=== PATIENT | male | born 1950 | race Caucasian/White ===

== ENCOUNTER 2017-12-27 13:25 | Emergency (ER) | payer MEDICARE, BC ==
[~2017-12-27] VITALS: Ht 172.7 cm; Wt 95.2 kg
[2017-12-27 13:54] LABS: BASOPHILS ABSOLUTE AUTO 0.07 K/mm3 (0.00-0.23); BASOPHILS PERCENT AUTO 1 % (0-2); EOSINOPHILS ABSOLUTE AUTO 0.43 K/mm3 (0.00-0.68); EOSINOPHILS PERCENT AUTO 7 % (0-6); Hematocrit 44.7 % (37.0-53.0); Hemoglobin 14.9 g/dL (13.5-17.5); IMMATURE GRAN ABSOLUTE AUTO 0.05 K/mm3 (0.00-0.10); IMMATURE GRAN PERCENT AUTO 1 % (0-1); LYMPHOCYTES ABSOLUTE AUTO 2.62 K/mm3 (0.84-5.20); LYMPHOCYTES PERCENT AUTO 41 % (21-46); MONOCYTES ABSOLUTE AUTO 0.87 K/mm3 (0.16-1.47); MONOCYTES PERCENT AUTO 14 % (4-13); Mean Corpuscular HGB 30.9 pg (26.0-34.0); Mean Corpuscular HGB Conc 33.3 g/dL (31.5-36.5); Mean Corpuscular Volume 93 fL (80-100); Mean Platelet Volume 10.9 fL (9.1-12.4); NEUTROPHILS ABSOLUTE AUTO 2.36 K/mm3 (1.96-9.15); NEUTROPHILS PERCENT AUTO 37 % (41-73); Platelet Count 180 K/mm3 (150-400); RDW Standard Deviation 47.2 fL (35.1-46.3); Red Blood Cell Count 4.82 M/mm3 (4.30-5.90)
[2017-12-27] MEDS ORDERED: [UNRECOGNIZED DRUG - OTHER] (14:05)
[2017-12-27] MEDS ORDERED: LORAZEPAM (14:05)
[2017-12-27] MEDS ORDERED: LISINOPRIL (14:05)
[2017-12-27] MEDS ORDERED: GABAPENTIN (14:05)
[2017-12-27 14:09] LABS: Albumin, Blood 4.1 g/dL (3.4-5.0); Bilirubin, Total 0.4 mg/dL (0.1-1.0); Bun/Creatinine Ratio 22.4 (12.0-20.0); Calcium, Blood 9.7 mg/dL (8.5-10.1); Creatinine, Blood 1.34 mg/dL (0.60-1.20); Globulin, Blood 4.1 g/dL (2.2-4.0); Potassium, Blood 4.2 mmol/L (3.5-5.5); Total Protein, Blood 8.2 g/dL (6.4-8.2)
[2017-12-27] MEDS ORDERED: HYDR25SUP PR (14:09)
== END 2017-12-27 14:15 | disposition home or self-care (01) ==
LOC: ER 13:25
PROVIDERS: Emergency Medicine
DX: K64.4 Residual hemorrhoidal skin tags (principal); K64.8 Other hemorrhoids
CPT/HCPCS: 36415; 46600; 80053; 85025; 86850; 86900; 86901; 99284

== ENCOUNTER → 2019-05-02 | Outpatient (CLI) | payer MEDICARE, BC ==
[~2019-05-02] MED LIST: GABAPENTIN; HYDR25SUP PR; LISINOPRIL; LORAZEPAM; [UNRECOGNIZED DRUG - OTHER]
[2019-05-02 12:07] LABS: BASOPHILS ABSOLUTE AUTO 0.04 K/mm3 (0.00-0.23); BASOPHILS PERCENT AUTO 1 % (0-2); EOSINOPHILS ABSOLUTE AUTO 0.47 K/mm3 (0.00-0.68); EOSINOPHILS PERCENT AUTO 10 % (0-6); Hematocrit 40.9 % (37.0-53.0); Hemoglobin 13.9 g/dL (13.5-17.5); IMMATURE GRAN ABSOLUTE AUTO 0.02 K/mm3 (0.00-0.10); IMMATURE GRAN PERCENT AUTO 0 % (0-1); LYMPHOCYTES ABSOLUTE AUTO 2.02 K/mm3 (0.84-5.20); LYMPHOCYTES PERCENT AUTO 43 % (21-46); MONOCYTES ABSOLUTE AUTO 0.54 K/mm3 (0.16-1.47); MONOCYTES PERCENT AUTO 12 % (4-13); Mean Corpuscular HGB 31.4 pg (26.0-34.0); Mean Corpuscular Volume 93 fL (80-100); Mean Platelet Volume 11.2 fL (9.1-12.4); NEUTROPHILS PERCENT AUTO 34 % (41-73); Platelet Count 151 K/mm3 (150-400); RDW Coefficient Variation 14.1 % (11.7-14.2); RDW Standard Deviation 47.8 fL (35.1-46.3); Red Blood Cell Count 4.42 M/mm3 (4.30-5.90); White Blood Cell Count 4.69 K/mm3 (4.00-11.30)
[2019-05-02 12:21] LABS: Alanine Aminotransfer (ALT/SGP 41 U/L (12-78); Albumin/Globulin Ratio 1.1 (0.8-1.8); Alk Phos 68 U/L (40-126); Anion Gap 7 mmol/L (6-16); Aspartate Aminotrans (AST/SGOT 50 U/L (12-37); Bilirubin, Total 0.4 mg/dL (0.1-1.0); Blood Urea Nitrogen 35 mg/dL (8-24); Bun/Creatinine Ratio 20.7 (12.0-20.0); CO2, Blood 26 mmol/L (21-32); Calcium, Blood 9.1 mg/dL (8.5-10.1); Chloride, Blood 103 mmol/L (98-108); Creatinine, Blood 1.69 mg/dL (0.60-1.20); Globulin, Blood 3.5 g/dL (2.2-4.0); Glomerular Filtration Rate 41 (60-); Glucose, Blood 119 mg/dL (70-99); Potassium, Blood 4.5 mmol/L (3.5-5.5); Sodium, Blood 136 mmol/L (136-145); Total Protein, Blood 7.5 g/dL (6.4-8.2)
[2019-05-02 12:26] LABS: Troponin I <0.017 ng/mL (0.000-0.040)
[2019-05-02 12:49] LABS: Free Thyroxine 0.62 ng/dL (0.70-1.60); Thyroid Stimulating Hormone 1.002 uIU/mL (0.360-4.800)
== END ==
LOC: LAB 11:59 → LAB SHORT 11:59
PROVIDERS: General Practice
DX: R53.81 Other malaise (principal); R53.83 Other fatigue
CPT/HCPCS: 80053; 83690; 83880; 84439; 84443; 84481; 84484; 85025

== ENCOUNTER 2022-07-21 08:37 | Emergency (ER) | payer MEDICARE, BC ==
[~2022-07-21] VITALS: Ht 172.7 cm; Wt 85.3 kg
[2022-07-21] MEDS ORDERED: ZOCOR20 MG PO (09:34)
[2022-07-21] MEDS ORDERED: TAMS.4ER PO (09:34)
[2022-07-21] MEDS ORDERED: ROPI1 PO (09:34)
[2022-07-21] MEDS ORDERED: SERT100 PO (09:34)
[2022-07-21] MEDS ORDERED: OXYB5 PO (09:35)
[2022-07-21] MEDS ORDERED: LEVSOD25 PO (09:36)
[2022-07-21 09:37] LABS: BASOPHILS ABSOLUTE AUTO 0.06 K/mm3 (0.00-0.23); BASOPHILS PERCENT AUTO 1 % (0-2); EOSINOPHILS ABSOLUTE AUTO 0.47 K/mm3 (0.00-0.68); EOSINOPHILS PERCENT AUTO 7 % (0-6); Hematocrit 48.5 % (37.0-53.0); Hemoglobin 16.6 g/dL (13.5-17.5); IMMATURE GRAN ABSOLUTE AUTO 0.03 K/mm3 (0.00-0.10); IMMATURE GRAN PERCENT AUTO 1 % (0-1); LYMPHOCYTES ABSOLUTE AUTO 2.62 K/mm3 (0.84-5.20); LYMPHOCYTES PERCENT AUTO 40 % (21-46); MONOCYTES ABSOLUTE AUTO 0.87 K/mm3 (0.16-1.47); MONOCYTES PERCENT AUTO 13 % (4-13); Mean Corpuscular HGB 30.5 pg (26.0-34.0); Mean Corpuscular HGB Conc 34.2 g/dL (31.5-36.5); Mean Corpuscular Volume 89 fL (80-100); Mean Platelet Volume 10.2 fL (9.1-12.4); NEUTROPHILS ABSOLUTE AUTO 2.54 K/mm3 (1.96-9.15); NEUTROPHILS PERCENT AUTO 39 % (41-73); Platelet Count 184 K/mm3 (150-400); RDW Coefficient Variation 13.3 % (11.7-14.2); RDW Standard Deviation 43.6 fL (35.1-46.3); Red Blood Cell Count 5.45 M/mm3 (4.30-5.90); White Blood Cell Count 6.59 K/mm3 (4.00-11.30)
[2022-07-21 10:03] LABS: Albumin, Blood 3.5 g/dL (3.4-5.0); Albumin/Globulin Ratio 0.9 (0.8-1.8); Bilirubin, Total 0.4 mg/dL (0.1-1.0); Bun/Creatinine Ratio 22.3 (12.0-20.0); Calcium, Blood 9.3 mg/dL (8.5-10.1); Creatinine, Blood 1.12 mg/dL (0.60-1.20); Globulin, Blood 3.8 g/dL (2.2-4.0); Potassium, Blood 3.8 mmol/L (3.5-5.5); Total Protein, Blood 7.3 g/dL (6.4-8.2)
[2022-07-21 10:23] LABS: Source, Urine Clean Catch
[2022-07-21 10:27] LABS: Appearance, Urine Clear (Clear); Bilirubin, Urine Neg (Neg); Blood, Urine Neg (Neg); Color, Urine Yellow (P-Yellow); Glucose Qualitative, Urine Neg (Neg); Ketones, Urine Neg (Neg); Leukocyte Esterase, Urine Neg (Neg); Nitrite, Urine Neg (Neg); Protein, Urine 2+ (Neg); Urobilinogen, Urine NORM (Normal)
[2022-07-21 10:35] LABS: Red Blood Cells, Urine 0-2 /hpf (0-2)
[2022-07-21 10:37] LABS: Bacteria Rare /hpf; Calcium Oxalate Crystals Few /hpf; Mucus Mod (0-Heavy); Squamous Epithelial Cells Not Seen /hpf (Few)
== END 2022-07-21 12:41 | disposition home or self-care (01) ==
LOC: ER 08:37
PROVIDERS: Emergency Medicine; Physician Assistant
DX: K85.90 Acute pancreatitis without necrosis or infection, unspecified (principal); Z79.899 Other long term (current) drug therapy
CPT/HCPCS: 36415; 71045; 71260; 74177; 80053; 81001; 83690; 85025; 93005; 93010; Q9967

== ENCOUNTER 2022-11-09 07:36 | Day surgery (SDC) | payer MEDICARE, BC ==
[~2022-11-09] VITALS: Ht 172.7 cm; Wt 78.1 kg
[~2022-11-09 07:36] MED LIST changes: +LEVSOD25 PO; +OXYB5 PO; +ROPI1 PO; +SERT100 PO; +TAMS.4ER PO; +ZOCOR20 MG PO
[2022-11-09] MEDS ORDERED: ALLO100 (07:58)
[2022-11-09] MEDS ORDERED: PANCREAZE DR 21 EAC3 (07:58)
[2022-11-09] MEDS ORDERED: GABA100 (07:59)
[2022-11-09] MEDS ORDERED: ZOCOR20 MG (07:59)
[2022-11-09] MEDS ORDERED: OXYB5 (07:59)
[2022-11-09] MEDS ORDERED: ROPI.25 (07:59)
[2022-11-09] MEDS ORDERED: SERT20L (07:59)
[2022-11-09] MEDS ORDERED: EUTHYROX50 MCG (07:59)
[2022-11-09] MEDS ORDERED: TAMS.4ER (08:00)
== END 2022-11-09 10:14 | disposition home or self-care (01) ==
LOC: ORSCSDS 07:36
PROVIDERS: Internal Medicine Gastroenterology
PROC: 0DBL8ZX Excision of Transverse Colon, Via Natural or Artificial Opening Endoscopic, Diagnostic (ICD-10-PCS; principal; 2022-11-09 08:45)
DX: Z12.11 Encounter for screening for malignant neoplasm of colon (principal); Z86.010 Personal history of colon polyps; D12.3 Benign neoplasm of transverse colon; N40.1 Benign prostatic hyperplasia with lower urinary tract symptoms; Z79.899 Other long term (current) drug therapy
CPT/HCPCS: 88305; J2704; J7120

== ENCOUNTER → 2023-05-17 | Outpatient (CLI) | payer MEDICARE, BC ==
[~2023-05-17] MED LIST changes: +ALLO100 PO; +EUTHYROX50 MCG PO; +GABA100 PO; +Norco 5-325 Ta1 EACH PO; +PANCREAZE DR 21 EAC3; +ROPI.25 PO; +SERT20L PO; +TAMS.4ER
[2023-05-19 23:09] LABS: LEAD/CREAT. RATIO 1 (0-49); MERCURY/CREAT. RATIO 0 (0-5)
== END | disposition home or self-care (01) ==
LOC: LAB 10:30 → LAB SHORT 10:30 → LAB FUT 05-09 14:05
PROVIDERS: Psychiatry & Neurology Neurology
DX: G62.9 Polyneuropathy, unspecified (principal)
CPT/HCPCS: 81050

== ENCOUNTER 2023-06-05 09:35 | Inpatient (IN) | payer MEDICARE, BC ==
[~2023-06-05] VITALS: Ht 170.2 cm; Wt 72.5 kg
[2023-06-05 10:11] LABS: BASOPHILS ABSOLUTE AUTO 0.07 K/mm3 (0.00-0.23); BASOPHILS PERCENT AUTO 1 % (0-2); EOSINOPHILS ABSOLUTE AUTO 0.44 K/mm3 (0.00-0.68); EOSINOPHILS PERCENT AUTO 5 % (0-6); Hematocrit 47.9 % (37.0-53.0); Hemoglobin 15.9 g/dL (13.5-17.5); IMMATURE GRAN ABSOLUTE AUTO 0.04 K/mm3 (0.00-0.10); IMMATURE GRAN PERCENT AUTO 1 % (0-1); LYMPHOCYTES ABSOLUTE AUTO 2.84 K/mm3 (0.84-5.20); LYMPHOCYTES PERCENT AUTO 32 % (21-46); MONOCYTES ABSOLUTE AUTO 1.01 K/mm3 (0.16-1.47); MONOCYTES PERCENT AUTO 11 % (4-13); Mean Corpuscular HGB 28.8 pg (26.0-34.0); Mean Corpuscular HGB Conc 33.2 g/dL (31.5-36.5); Mean Corpuscular Volume 87 fL (80-100); Mean Platelet Volume 10.7 fL (9.1-12.4); NEUTROPHILS ABSOLUTE AUTO 4.47 K/mm3 (1.96-9.15); NEUTROPHILS PERCENT AUTO 50 % (41-73); Platelet Count 221 K/mm3 (150-400); RDW Standard Deviation 44.3 fL (35.1-46.3); Red Blood Cell Count 5.53 M/mm3 (4.30-5.90); White Blood Cell Count 8.87 K/mm3 (4.00-11.30)
[2023-06-05 10:28] LABS: Albumin, Blood 3.3 g/dL (3.4-5.0); Albumin/Globulin Ratio 0.7 (0.8-1.8); Bilirubin, Total 0.5 mg/dL (0.1-1.0); Bun/Creatinine Ratio 18.4 (12.0-20.0); Calcium, Blood 9.4 mg/dL (8.5-10.1); Creatinine, Blood 1.14 mg/dL (0.60-1.20); Globulin, Blood 4.7 g/dL (2.2-4.0)
[2023-06-05 12:11] LABS: Source, Urine Clean Catch
[2023-06-05 12:22] LABS: Appearance, Urine Clear (Clear); Bilirubin, Urine Neg (Neg); Blood, Urine Neg (Neg); Color, Urine Yellow (P-Yellow); Glucose Qualitative, Urine Neg (Neg); Ketones, Urine Neg (Neg); Leukocyte Esterase, Urine 1+ (Neg); Nitrite, Urine Neg (Neg); Protein, Urine 1+ (Neg); Urobilinogen, Urine NORM (Normal)
[2023-06-05 12:35] LABS: Bacteria Rare /hpf; Mucus Light (0-Heavy); Red Blood Cells, Urine 0-2 /hpf (0-2); Squamous Epithelial Cells Not Seen /hpf (Few)
[2023-06-05 12:36] LABS: Calcium Oxalate Crystals Few /hpf
[2023-06-05 15:23] VITALS: BP 133/84
[2023-06-05 15:24] LABS: Influenza A, PCR NEGATIVE (NEGATIVE); Influenza B, PCR NEGATIVE (NEGATIVE); Resp Syncytial Virus, PCR NEGATIVE (NEGATIVE); SARS-Cov-2 (COVID-19) PCR, MMC NEGATIVE (NEGATIVE)
--- NOTE | 2023-06-05 16:01 | NUR ---
Pt arrived to 303 via gurney from ED, he is able to stand and transfer with one assist to bed. a/ox4, pleasant and cooperative with care, spouce at bedside, lungs are clear in upper durbin but crackles in bases, and shallow resp, currently on 2 liters 02 via n/c, not home 02 dep, resp even and unlabored at rest, but becomes dyspnic with activity, no cough noted at this time, but reports has had a cough at home bringing up green sputum, hrr, no edema noted, ppp+1, cap refill< 3sec, vs stable, afebrile, iv site to rac site is clear and patent, btx4, abd flat soft nontender, voids without diff, skin c/w/d, bryce haque, pt states he's lost 60lbs in the last two yrs, and is not able to do much, and is just done, asked about code status and wants DNR, seems a bit depressed. oriented to room layout and call system, call light in reach.
--- NOTE | 2023-06-05 18:06 | NUR ---
pt doing ok, no changes since arrival, call light in reach.
[2023-06-05 19:58] VITALS: BP 102/62
[2023-06-06 02:52] VITALS: BP 106/71
--- NOTE | 2023-06-06 04:27 | NUR ---
SHIFT SUMMARY *CHANDRA* IS ALERT AND FULLY ORIENTED AT THE START OF SHIFT. NO ACUTE CHANGES IN CONDITION, NO MAJOR COMPLAINTS. HE HAS BEEN COOPERATIVE WITH CARE, AND SLEPT THROUGH THE SHIFT WITHOUT INCIDENT. HE IS CURENTLY RESTING IN BED IN A LOW POSITION WITH THE CALL LIGHT IN REACH.
[2023-06-06 05:09] LABS: BASOPHILS ABSOLUTE AUTO 0.07 K/mm3 (0.00-0.23); BASOPHILS PERCENT AUTO 1 % (0-2); EOSINOPHILS ABSOLUTE AUTO 0.38 K/mm3 (0.00-0.68); EOSINOPHILS PERCENT AUTO 5 % (0-6); Hematocrit 43.1 % (37.0-53.0); Hemoglobin 14.3 g/dL (13.5-17.5); IMMATURE GRAN ABSOLUTE AUTO 0.02 K/mm3 (0.00-0.10); IMMATURE GRAN PERCENT AUTO 0 % (0-1); LYMPHOCYTES PERCENT AUTO 40 % (21-46); MONOCYTES ABSOLUTE AUTO 0.93 K/mm3 (0.16-1.47); MONOCYTES PERCENT AUTO 12 % (4-13); Mean Corpuscular HGB 28.7 pg (26.0-34.0); Mean Corpuscular HGB Conc 33.2 g/dL (31.5-36.5); Mean Corpuscular Volume 87 fL (80-100); Mean Platelet Volume 11.4 fL (9.1-12.4); NEUTROPHILS ABSOLUTE AUTO 3.14 K/mm3 (1.96-9.15); NEUTROPHILS PERCENT AUTO 42 % (41-73); Platelet Count 202 K/mm3 (150-400); RDW Standard Deviation 44.2 fL (35.1-46.3); Red Blood Cell Count 4.98 M/mm3 (4.30-5.90); White Blood Cell Count 7.54 K/mm3 (4.00-11.30)
[2023-06-06 05:43] LABS: Albumin, Blood 2.9 g/dL (3.4-5.0); Albumin/Globulin Ratio 0.7 (0.8-1.8); Bilirubin, Total 0.2 mg/dL (0.1-1.0); Calcium, Blood 9.1 mg/dL (8.5-10.1); Creatinine, Blood 1.16 mg/dL (0.60-1.20); Globulin, Blood 4.1 g/dL (2.2-4.0); Potassium, Blood 4.4 mmol/L (3.5-5.5)
[2023-06-06 08:45] VITALS: BP 98/71
[2023-06-06 15:32] VITALS: BP 113/77
--- NOTE | 2023-06-06 18:21 | NUR ---
SHIFT SUMMARY: PT A/O X 4, STANDBY ASSIST WITH WALKER AND GB. PLEASANT AND COOPERATIVE. PT ON 2 LPM VIA NC. HAS OCCASIONAL COUGH WAS ABLE TO PRODUCE SPUTUM SAMPLE WITH WHELAN COLORED SPUTUM. PT HAS GOOD APPETITE. NO OTHER COMPLAINTS THROUGHOUT THE DAY.
[2023-06-06 19:32] VITALS: BP 125/69
[2023-06-06 19:53] LABS: Acinetobacter baumannii DNA Detected Bin 10^5 copy/mL (NOT DETECT); CTX-M Resistance Gene Not Detected; Enterobacter cloacae DNA Not Detected copy/mL (NOT DETECT); Escherichia coli DNA Not Detected copy/mL (NOT DETECT); Haemophilus influenzae DNA Not Detected copy/mL (NOT DETECT); IMP Resistance Gene Not Detected; KPC Resistance Gene Not Detected; Klebsiella aerogenes DNA Not Detected copy/mL (NOT DETECT); Klebsiella oxytoca DNA Not Detected copy/mL (NOT DETECT); Klebsiella pneumoniae DNA Not Detected copy/mL (NOT DETECT); Moraxella catarrhalis DNA Not Detected copy/mL (NOT DETECT); NDM Resistance Gene Not Detected; Proteus sp DNA Not Detected copy/mL (NOT DETECT); Pseudomonas aeruginosa DNA Not Detected copy/mL (NOT DETECT); Serratia marcescens DNA Not Detected copy/mL (NOT DETECT); Staphylococcus aureus DNA Not Detected copy/mL (NOT DETECT); Streptococcus agalactiae DNA Not Detected copy/mL (NOT DETECT); Streptococcus pneumoniae DNA Not Detected copy/mL (NOT DETECT); Streptococcus pyogenes DNA Not Detected copy/mL (NOT DETECT)
[2023-06-06 19:54] LABS: Adenovirus DNA Not Detected (NOT DETECT); Chlamydia pneumonia Not Detected (NOT DETECT); Human Coronavirus RNA Not Detected (NOT DETECT); Human Metapneumovirus RNA Not Detected (NOT DETECT); Influenza virus A RNA Not Detected (NOT DETECT); Influenza virus B RNA Not Detected (NOT DETECT); Legionella pneumophila Not Detected (NOT DETECT); Mycoplasma pneumoniae Not Detected (NOT DETECT); Parainfluenza virus RNA Not Detected (NOT DETECT); Respiratory syncytial Vir RNA Not Detected (NOT DETECT); Rhinovirus+Enterovirus RNA Not Detected (NOT DETECT); VIM Resistance Gene Not Detected
[2023-06-07 02:10] VITALS: BP 113/71
--- NOTE | 2023-06-07 04:14 | NUR ---
SHIFT SUMMARY *CHANDRA* WAS ALERT AND FULLY ORIENTED AT THE START OF THE SHIFT, AND COOPERATIVE WITH CARE. HE HAD NO ACUTE EVENTS THIS SHIFT AND NO SIGNIFICANT COMPLAINTS. URINE SAMPLE WAS COLLECTED AND SENT TO LAB. LAB REPORTED ACTIVE INFECTON OF A. BAUMANNII, PT PLACED ON CONTACT PRECAUTIONS UNTIL INFECTION CONTROL CAN BE CONTACTED ON DAY SHIFT TO DETERMINE APPROPRIATE PRECATIONS. PT IS CURRENTLY RESTING IN BED WITH THE CALL LIGHT IN REACH
[2023-06-07 05:05] LABS: BASOPHILS ABSOLUTE AUTO 0.06 K/mm3 (0.00-0.23); BASOPHILS PERCENT AUTO 1 % (0-2); EOSINOPHILS ABSOLUTE AUTO 0.38 K/mm3 (0.00-0.68); EOSINOPHILS PERCENT AUTO 6 % (0-6); Hematocrit 41.8 % (37.0-53.0); IMMATURE GRAN ABSOLUTE AUTO 0.02 K/mm3 (0.00-0.10); IMMATURE GRAN PERCENT AUTO 0 % (0-1); LYMPHOCYTES ABSOLUTE AUTO 2.49 K/mm3 (0.84-5.20); LYMPHOCYTES PERCENT AUTO 38 % (21-46); MONOCYTES ABSOLUTE AUTO 0.88 K/mm3 (0.16-1.47); MONOCYTES PERCENT AUTO 14 % (4-13); Mean Corpuscular HGB Conc 33.5 g/dL (31.5-36.5); Mean Corpuscular Volume 87 fL (80-100); NEUTROPHILS PERCENT AUTO 41 % (41-73); Platelet Count 184 K/mm3 (150-400); RDW Coefficient Variation 13.8 % (11.7-14.2); RDW Standard Deviation 43.7 fL (35.1-46.3); Red Blood Cell Count 4.82 M/mm3 (4.30-5.90); White Blood Cell Count 6.53 K/mm3 (4.00-11.30)
[2023-06-07 05:27] LABS: Creatinine, Blood 1.12 mg/dL (0.60-1.20); Potassium, Blood 4.1 mmol/L (3.5-5.5)
[2023-06-07 07:50] VITALS: BP 117/76
[2023-06-07 14:56] VITALS: BP 118/80
--- NOTE | 2023-06-07 17:57 | NUR ---
SHIFT SUMMARY PT AOX4, SBA TO THE CHAIR. UP IN CHAIR FOR MEALS. SEE NOTES ABOUT HOME O2 EVAL DONE TODAY. USES THE URINAL INDEPENDENTLY. AT THE BS THIS SHIFT. BRONCHO SCHEDULED TOMORROW, NPO AFTER 07 ON 06/08. PT IS CURRENTLY ON 2.5L NC, PER RESPIRATORY THERAPY, PT NEEDS 4L WHILE AMBULATING. INFECTION CONTROL DC'D THE ISOLATION PRECAUTIONS AT THE START OF THE SHIFT. PT HAS NO COMPLAINTS AT THIS TIME. CALL LIGHT WITHIN REACH, BED IN THE LOWEST POSITION. WILL REPORT TO ONCOMING NURSE.
[2023-06-07 21:20] VITALS: BP 113/74
[2023-06-08] VITALS (23 sets, daily range): BP systolic 93–145; BP diastolic 65–95
--- NOTE | 2023-06-08 04:08 | NUR ---
SHIFT SUMMARY CHANDRA WAS ALERT AND FULLY ORIENTED THIS SHIFT, HE WAS COOPERATIVE, AND RESTED T/O THE SHIFT WITHOUT ANY COMPLAINTS OR ACUTE CHANGES IN CONDITION. HE IS CURRENTLY RESTING IN BED WITH THE CALL LIGHT IN REACH.
[2023-06-08 05:09] LABS: BASOPHILS ABSOLUTE AUTO 0.07 K/mm3 (0.00-0.23); BASOPHILS PERCENT AUTO 1 % (0-2); EOSINOPHILS ABSOLUTE AUTO 0.36 K/mm3 (0.00-0.68); EOSINOPHILS PERCENT AUTO 6 % (0-6); Hematocrit 42.1 % (37.0-53.0); IMMATURE GRAN ABSOLUTE AUTO 0.02 K/mm3 (0.00-0.10); IMMATURE GRAN PERCENT AUTO 0 % (0-1); LYMPHOCYTES ABSOLUTE AUTO 2.26 K/mm3 (0.84-5.20); LYMPHOCYTES PERCENT AUTO 35 % (21-46); MONOCYTES ABSOLUTE AUTO 0.73 K/mm3 (0.16-1.47); MONOCYTES PERCENT AUTO 11 % (4-13); Mean Corpuscular HGB 28.7 pg (26.0-34.0); Mean Corpuscular HGB Conc 33.3 g/dL (31.5-36.5); Mean Corpuscular Volume 86 fL (80-100); Mean Platelet Volume 10.9 fL (9.1-12.4); NEUTROPHILS PERCENT AUTO 47 % (41-73); Platelet Count 185 K/mm3 (150-400); RDW Coefficient Variation 13.7 % (11.7-14.2); RDW Standard Deviation 42.9 fL (35.1-46.3); Red Blood Cell Count 4.88 M/mm3 (4.30-5.90); White Blood Cell Count 6.54 K/mm3 (4.00-11.30)
[2023-06-08 05:36] LABS: Bun/Creatinine Ratio 22.9 (12.0-20.0); Calcium, Blood 8.8 mg/dL (8.5-10.1); Creatinine, Blood 1.05 mg/dL (0.60-1.20); Potassium, Blood 4.1 mmol/L (3.5-5.5)
--- NOTE | 2023-06-08 09:41 | NUR ---
RN NOTE ON HOLD ON [facility] INTERPRETER FOR THE [facility] PHONE FOR [facility] INTERPRETER FOR THE [facility] FOR 15 MINUTES. NO INTERPRETER FOR THE DEAF AVAILABLE. UNABLE TO FILL OUT MRI SCREENING FORM AT THIS TIME.
--- NOTE | 2023-06-08 10:51 | NUR ---
Arrived to [facility] by randi. Patient confirms NPO status and agrees with scheduled surgery. Lungs clear T/O to Auscultation, DIM in bases. Pre-Op teaching done. Pt verbalizes understanding.
--- NOTE | 2023-06-08 11:02 | NUR ---
06/08/23 1102 Rita Kenny HISTORY, CHART, MEDICATIONS AND ALLERGIES REVIEWED BEFORE START OF PROCEDURE. PATIENT CONFIRMS NPO STATUS AND AGREES WITH SCHEDULED PROCEDURE. 3-LEAD EKG REVIEWED WITH PHYSICIAN PRIOR TO START OF PROCEDURE. MONITOR INTACT WITH CONTINUOUS PULSE OXIMETRY,CAPNOGRAPHY, 3-LEAD EKG, INTERMITTENT BP. SUPPLEMENTAL O2 TO BE TITRATED THROUGHOUT PROCEDURE TO MAINTAIN O2 SATURATION ABOVE 90%. PATIENT DETERMINED TO BE ASA APPROPRIATE FOR PROPOFOL SEDATION PRIOR TO START OF PROCEDURE BY DR. ELIZALDE
--- NOTE | 2023-06-08 11:29 | NUR ---
RN NOTE MR CHOW WENT TO DAY SURGERY FOR BRONCHOSCOPY AT 1035HRS.
--- NOTE | 2023-06-08 13:57 | NUR ---
RN NOTE MR CHOW IS WIDE AWAKE AND HAS NO FURTHER SENSATION OF NUMBNESS TO THE BACK OF HIS THROAT. TOLERATED WATER WITHOUT COUGHING, PT SAID SWALLOWING FELT NORMAL SO GIVEN LUNCH TRAY. AT BEDSIDE. HOME OXYGEN PORTABLE CONTAINER DELIVERED TO PTS ROOM IN ANTIPATION OF POSSIBLE DISCHARGE.
--- NOTE | 2023-06-08 14:03 | NUR ---
MD CALL TELEPHONE ORDER GIVEN BY DR FLORES FOR MIRILAX 1PKT PO X 1 NOW AND DOCUSATE 2 TABLETS PO X 1 NOW. READBACK DONE AND ORDER ENTERED INTO [employer]. PT C/O NO BM X 1 WEEK.
[2023-06-08] MEDS ORDERED: Tessalon200 MG PO (15:46)
[2023-06-08] MEDS ORDERED: AMOCLA875 PO (15:47)
--- NOTE | 2023-06-08 16:07 | NUR ---
DISCHARGE MR GERALDO AND HIS VERBALISED UNDERSTANING OF WRITTEN AND VERBAL DISCHARGE INSTRUCTIONS. PIV REMOVED INTACT. PT GETTING DRESSED NOW READY TO LEAVE. HE AND HIS DENY CONCERNS OR ANY OTHER QUESTIONS AT THIS TIME.
--- NOTE | 2023-06-08 16:21 | NUR ---
PT LEFT VIA W/C AT 1618HRS
== END 2023-06-08 16:17 | disposition home or self-care (01) | DRG 193 ==
LOC: ER 09:35 → MEDS 14:04
PROVIDERS: Internal Medicine Critical Care Medicine; Student in an Organized Health Care Education/Training Program; ADMIT Internal Medicine
PROC: 0B9C8ZX Drainage of Right Upper Lung Lobe, Via Natural or Artificial Opening Endoscopic, Diagnostic (ICD-10-PCS; principal; 2023-06-08 12:00)
DX: J18.9 Pneumonia, unspecified organism (principal); J96.01 Acute respiratory failure with hypoxia; I12.9 Hypertensive chronic kidney disease with stage 1 through stage 4 chronic kidney disease, or unspecified chronic kidney disease; N18.30 Chronic kidney disease, stage 3 unspecified; E03.9 Hypothyroidism, unspecified; N40.0 Benign prostatic hyperplasia without lower urinary tract symptoms; Z66 Do not resuscitate; E66.9 Obesity, unspecified; M10.9 Gout, unspecified; F41.8 Other specified anxiety disorders; E78.5 Hyperlipidemia, unspecified; G62.9 Polyneuropathy, unspecified; K21.9 Gastro-esophageal reflux disease without esophagitis; Z20.822 Contact with and (suspected) exposure to COVID-19; Z68.24 Body mass index [BMI] 24.0-24.9, adult; R63.4 Abnormal weight loss; Z79.899 Other long term (current) drug therapy; Z90.49 Acquired absence of other specified parts of digestive tract; Z90.89 Acquired absence of other organs
CPT/HCPCS: 0241U; 36415; 71046; 71250; 74177; 80048; 80053; 81001; 82947; 83690; 83880; 84145; 84484; 85025; 87070; 87086; 87205; 87449; 87633; 88108; 93005; 93010; 94761; 96365; 96367; 99285-25; A9270; J0171; J0456; J0696; J1650; J2001; J2704; J7050; J7120; Q9967

== ENCOUNTER 2024-02-08 20:25 | Inpatient (IN) | payer MEDICARE, BC ==
[~2024-02-08] VITALS: Ht 175.3 cm; Wt 85.0 kg
[~2024-02-08 20:25] MED LIST changes: +AMOCLA875 PO; +Tessalon200 MG PO
[2024-02-08] MEDS ORDERED: OMEP20ER PO (20:45)
[2024-02-08] MEDS ORDERED: ROPINIROLE HCL1 MG PO (20:45)
[2024-02-08 21:12] LABS: Albumin, Blood 4.1 g/dL (3.4-5.0); Albumin/Globulin Ratio 0.9 (0.8-1.8); Bun/Creatinine Ratio 20.2 (12.0-20.0); Calcium, Blood 10.3 mg/dL (8.5-10.1); Creatinine, Blood 1.19 mg/dL (0.60-1.20); Globulin, Blood 4.7 g/dL (2.2-4.0); Potassium, Blood 4.2 mmol/L (3.5-5.5); Total Protein, Blood 8.8 g/dL (6.4-8.2)
[2024-02-08 21:13] LABS: BASOPHILS ABSOLUTE AUTO 0.04 K/mm3 (0.00-0.23); BASOPHILS PERCENT AUTO 0 % (0-2); EOSINOPHILS ABSOLUTE AUTO 0.16 K/mm3 (0.00-0.68); EOSINOPHILS PERCENT AUTO 2 % (0-6); Hematocrit 53.1 % (37.0-53.0); Hemoglobin 17.7 g/dL (13.5-17.5); IMMATURE GRAN ABSOLUTE AUTO 0.03 K/mm3 (0.00-0.10); IMMATURE GRAN PERCENT AUTO 0 % (0-1); LYMPHOCYTES ABSOLUTE AUTO 0.66 K/mm3 (0.84-5.20); LYMPHOCYTES PERCENT AUTO 7 % (21-46); MONOCYTES ABSOLUTE AUTO 0.62 K/mm3 (0.16-1.47); MONOCYTES PERCENT AUTO 7 % (4-13); Mean Corpuscular HGB Conc 33.3 g/dL (31.5-36.5); Mean Corpuscular Volume 87 fL (80-100); NEUTROPHILS PERCENT AUTO 84 % (41-73); RDW Coefficient Variation 14.3 % (11.7-14.2); RDW Standard Deviation 45.2 fL (35.1-46.3); White Blood Cell Count 9.21 K/mm3 (4.00-11.30)
[2024-02-08 21:33] LABS: Platelet Count 184 K/mm3 (150-400)
[2024-02-08 21:35] LABS: Influenza A, PCR NEGATIVE (NEGATIVE); Influenza B, PCR NEGATIVE (NEGATIVE); Resp Syncytial Virus, PCR NEGATIVE (NEGATIVE); SARS-Cov-2 (COVID-19) PCR, MMC NEGATIVE (NEGATIVE)
[2024-02-09] MEDS ORDERED: Ondansetron HCl 2 MG / ML 2ML Vial IV PRN (00:45)
[2024-02-09] MEDS ORDERED: Morphine Sulfate 4 MG/1 ML Injection IV PRN (00:45)
[2024-02-09] MEDS ORDERED: Lactated Ringer's 1,000 ML IV SCH ×2 (01:00→13:00)
[2024-02-09] MEDS ORDERED: Azithromycin 500 MG in NS 250 ML IV SCH (01:00)
[2024-02-09 01:20] LABS: Magnesium, Blood 1.7 mg/dL (1.6-2.4)
[2024-02-09 01:50] LABS: Campylobacter Sp Not Detected (NOT DETECT); Cryptosporidium Not Detected (NOT DETECT); Cyclospora Cayetanensis Not Detected (NOT DETECT); E. Coli O157 Not Detected (NOT DETECT); Enteroaggregative E. coli-EAEC Not Detected (NOT DETECT); Enteropathogenic E. coli-EPEC Not Detected (NOT DETECT); Enterotoxigenic E. coli-ETEC Not Detected (NOT DETECT); Plesiomonas Shigelloides Not Detected (NOT DETECT); Salmonella Sp Not Detected (NOT DETECT); Shiga Toxin-prod E. coli-STEC Not Detected (NOT DETECT); Shigella/Enteroin E. coli-EIEC Not Detected (NOT DETECT); Vibrio Cholerae Not Detected (NOT DETECT); Vibrio Sp Not Detected (NOT DETECT); Yersinia Enterocolitica Not Detected (NOT DETECT)
[2024-02-09 01:51] LABS: Adenovirus F 40/41 Not Detected (NOT DETECT); Astrovirus Not Detected (NOT DETECT); Entamoeba Histolytica Not Detected (NOT DETECT); Giardia Lamblia Not Detected (NOT DETECT); Norovirus GI/GII Not Detected (NOT DETECT); Rotavirus A Not Detected (NOT DETECT); Sapovirus Not Detected (NOT DETECT)
[2024-02-09 02:49] VITALS: BP 124/68
--- NOTE | 2024-02-09 04:35 | NUR ---
SHIFT SUMMARY: ARRIVED FROM ED 0240 VIA STRETCHED TRANSFERRED VIA SLIDERBOARD X4 STAFF ASSIST. PT INCONTINENT AND SOILED W/ BRIEF AND PADS CHANGED, DEBBIE CARE COMPLETED. ADMISSION/ASSESSMENT COMPLETED. MIXER RUNNER W/ COMPATIBILITY CHECKED VIA PHARMACY. PT NPO, SWABS PROVIDED TO ALLEVIATE DRY MOUTH. RECTAL TUBE IN PLACE PATENT DRAINING BROWN LIQUID. SCDS IN PLACE. SAFETY PRECATIONS MONITORED. BED LOCKED AND LOW WITH CALL LIGHT WITHIN PLACE.
[2024-02-09 07:28] VITALS: BP 122/82
--- NOTE | 2024-02-09 14:11 | NUR ---
CONTACTED DR. BARFIELD REGUARDING WHETHER THE PATIENT WILL BE HAVING THE NEPHROSTOMY TUBE PLACED TODAY OR NOT; PER DR. BARFIELD THE PATIENT WILL NOT BE HAVING THE PROCEDURE DUE TO HIS KIDNEY FUNCTION STATED IN THE PREVIOUS DOCUMENTATION WITH DR. APODACA. PER DR. BARFIELD TOO KEEP THE PATIENT NPO AND LR INFUSING AT 100 ML/HR. ALSO CONTACTED DR. BARFIELD ABOUT PATIENT C.O RESTLESS LEGS AND REQUESTING HIS HOME MEDICATIONS. MESSAGE SENT TO DR. BARFIELD AWAITING A RESPONSE.
[2024-02-09 15:07] VITALS: BP 120/73
--- NOTE | 2024-02-09 16:29 | NUR ---
SHIFT SUMMARY: PT IS A&OX4/HAS BEEN IN BED ENTIRE SHIFT. MOVES INDEPENDENTLY IN THE BED; DOESN'T FEEL WELL ENOUGH TO STAND OR GET UP. HE CONTINUES TO HAVE DARK LOOSE STOOL, BUT AMOUNT HAS DECREASED SINCE THIS MORNING. HE REQUESTED FOR HIS RECTAL TUBE TO BE REMOVED AT 1500 DUE TO IT CAUSING DISCOMFORT AND WANTING IT OUT. RECTAL TUBE REMOVED WITHOUT DIFFICULTY. PATIENT INCONTIENT OF URINE AND STOOL AT THIS TIME. PER DR. BARFIELD LEAVE PATIENT NPO AND CONTINUING GETTING LR AT 100ML/HR UNTIL MORNING JUST IN CASE OF PROCEDURE. PATIENT IN BED, CALL LIGHT WITHIN REACH, NO SIGNS OR SYMPTOMS OF DISTRESS, PLAN OF CARE ONGOING.
[2024-02-09] MEDS ORDERED: rOPINIRole HCl 1 MG Tab PO PRN (17:05)
[2024-02-09 19:23] VITALS: BP 127/80
[2024-02-09] MEDS ORDERED: Tamsulosin HCl 0.4 MG Cap PO SCH (21:00)
[2024-02-09] MEDS ORDERED: Gabapentin 300 MG Cap PO SCH (21:00)
[2024-02-10 04:58] VITALS: BP 147/84
--- NOTE | 2024-02-10 05:04 | NUR ---
SHIFT SUMMARY: A&OX4. 3LNC ENDORSES SOB W/ MINIMAL EXERTION. XIE PATENT DRAINING YELLOW URINE. PT HELPED STAFF TO TURN SELF. PT HAS WOUND ON COCCYX AND BILAT HEELS. MEDS GIVEN IN APPLESAUCE. QUESTIONS ANSWERED CONCERNS ADRESSED, PT DENIES NEEDS.
[2024-02-10 05:33] LABS: BASOPHILS ABSOLUTE AUTO 0.05 K/mm3 (0.00-0.23); BASOPHILS PERCENT AUTO 1 % (0-2); EOSINOPHILS ABSOLUTE AUTO 0.44 K/mm3 (0.00-0.68); EOSINOPHILS PERCENT AUTO 5 % (0-6); Hemoglobin 13.3 g/dL (13.5-17.5); IMMATURE GRAN ABSOLUTE AUTO 0.03 K/mm3 (0.00-0.10); IMMATURE GRAN PERCENT AUTO 0 % (0-1); LYMPHOCYTES ABSOLUTE AUTO 2.61 K/mm3 (0.84-5.20); LYMPHOCYTES PERCENT AUTO 27 % (21-46); MONOCYTES ABSOLUTE AUTO 0.88 K/mm3 (0.16-1.47); MONOCYTES PERCENT AUTO 9 % (4-13); Mean Corpuscular HGB 30.1 pg (26.0-34.0); Mean Corpuscular HGB Conc 34.1 g/dL (31.5-36.5); Mean Corpuscular Volume 88 fL (80-100); Mean Platelet Volume 11.7 fL (9.1-12.4); NEUTROPHILS ABSOLUTE AUTO 5.62 K/mm3 (1.96-9.15); NEUTROPHILS PERCENT AUTO 58 % (41-73); Platelet Count 151 K/mm3 (150-400); RDW Coefficient Variation 14.6 % (11.7-14.2); RDW Standard Deviation 47.3 fL (35.1-46.3); Red Blood Cell Count 4.42 M/mm3 (4.30-5.90); White Blood Cell Count 9.63 K/mm3 (4.00-11.30)
[2024-02-10 06:11] LABS: Albumin/Globulin Ratio 0.9 (0.8-1.8); Bilirubin, Total 0.7 mg/dL (0.1-1.0); Bun/Creatinine Ratio 22.5 (12.0-20.0); Calcium, Blood 8.6 mg/dL (8.5-10.1); Creatinine, Blood 1.29 mg/dL (0.60-1.20); Globulin, Blood 3.2 g/dL (2.2-4.0); Potassium, Blood 3.6 mmol/L (3.5-5.5)
[2024-02-10 06:14] LABS: Total Protein, Blood 6.2 g/dL (6.4-8.2)
[2024-02-10 07:44] VITALS: BP 153/98
[2024-02-10 15:04] VITALS: BP 151/89
--- NOTE | 2024-02-10 16:24 | NUR ---
SHIFT SUMMARY; PATIENT HAD OUTBURST OF VERBAL AGGRESSION TOWARDS THIS RN THIS AM. TRANG WAS LAYING DOWN FLAT IN BED AND WHEN THIS RN ASKED TO ASSIST IN TO A POSITION WITH HOB AT 45 DEGREES SO HIS OXYGEN SATS COULD RECOVER HE BECAN BY CALLING HER A "BITCH" AND "YOU DON'T KNOW WHAT THE FK YOU ARE TALKING ABOUT" THIS RN ENCOURAGED PATIENT TO EXPRESS HIS FEELINGS AND DID TRY AND EDUCATE ON HOW HIS LOW OXYGEN MAY BE AFFECTING HIS HELP. HE REFUSED TO CALM SO THIS RN STEPPED OUT OF ROOM TO SECURITY AND NURSING ELECTRONIC [employer] RECORDS SPECIALIST COMES TO ROOM PATIENT CALMS HIMSELF. HE APOLOGIZED TO THIS RN AND SAID HE WAS NOT SURE WHY HE HAD SUCH AN ANGRY OUTBURST. AND IS QUITE PLEASANT WITH THIS RN THE REST OF DAY. HE IS MEDICATED WITH MORPHINE X 2 FOR PAIN TODAY. HE SLEPT MOST OF DAY. DIET ORDER WAS PLACED FOR REGULAR DIET AND PATIENT ENJOYED LUNCH SAYING HE FELT MUUCH BETTER AFTER EATING. NO EVIDENCE OF BLOODY STOOLS ARE NOTED AND PATIENT COMPLAINS OF MILD PAIN TO ABDOMEN AND BACK. HIS VITAL SIGNS ARE STABLE AND PATIENT IS NOT FEBRILE. HE IS AO X 4. USING HIS CALL LIGHT APPROPRIATELY.
[2024-02-10 19:41] VITALS: BP 143/90
[2024-02-11 04:26] VITALS: BP 144/87
[2024-02-11 05:25] LABS: BASOPHILS ABSOLUTE AUTO 0.03 K/mm3 (0.00-0.23); BASOPHILS PERCENT AUTO 0 % (0-2); EOSINOPHILS ABSOLUTE AUTO 0.46 K/mm3 (0.00-0.68); EOSINOPHILS PERCENT AUTO 7 % (0-6); Hematocrit 37.3 % (37.0-53.0); Hemoglobin 12.5 g/dL (13.5-17.5); IMMATURE GRAN ABSOLUTE AUTO 0.01 K/mm3 (0.00-0.10); IMMATURE GRAN PERCENT AUTO 0 % (0-1); LYMPHOCYTES ABSOLUTE AUTO 2.37 K/mm3 (0.84-5.20); LYMPHOCYTES PERCENT AUTO 34 % (21-46); MONOCYTES ABSOLUTE AUTO 0.61 K/mm3 (0.16-1.47); MONOCYTES PERCENT AUTO 9 % (4-13); Mean Corpuscular HGB 29.6 pg (26.0-34.0); Mean Corpuscular HGB Conc 33.5 g/dL (31.5-36.5); Mean Corpuscular Volume 88 fL (80-100); Mean Platelet Volume 11.9 fL (9.1-12.4); NEUTROPHILS ABSOLUTE AUTO 3.41 K/mm3 (1.96-9.15); NEUTROPHILS PERCENT AUTO 50 % (41-73); Platelet Count 146 K/mm3 (150-400); RDW Coefficient Variation 14.4 % (11.7-14.2); RDW Standard Deviation 46.2 fL (35.1-46.3); Red Blood Cell Count 4.22 M/mm3 (4.30-5.90); White Blood Cell Count 6.89 K/mm3 (4.00-11.30)
[2024-02-11 05:55] LABS: Albumin, Blood 2.9 g/dL (3.4-5.0); Albumin/Globulin Ratio 0.9 (0.8-1.8); Bilirubin, Total 0.8 mg/dL (0.1-1.0); Calcium, Blood 8.8 mg/dL (8.5-10.1); Creatinine, Blood 1.05 mg/dL (0.60-1.20); Globulin, Blood 3.2 g/dL (2.2-4.0); Potassium, Blood 3.5 mmol/L (3.5-5.5); Total Protein, Blood 6.1 g/dL (6.4-8.2)
--- NOTE | 2024-02-11 06:12 | NUR ---
SHIFT SUMMARY ELIDA WAS ALERT AND FULLY ORIENTED ON ASSESSMENT. PT CONTINENT/INCONTINENT. PER DAY SHIFT REPORT HE VOMITED AFTER EATING ON DAY SHIFT. HE REQUESTED MORE FOOD TO TRY EATING TONIGHT WITH NO PROBLEM. NO BM TONIGHT. NO ACUTE CHANGES TO CONDITION NOTED. PT RESTING COMFORTABLY IN BED WITH CALL LIGHT IN REACH.
[2024-02-11 07:43] VITALS: BP 142/91
--- NOTE | 2024-02-11 10:14 | NUR ---
PATIENT C/O FEELING VERY COLD. NO FEVER NOTED. PROVIDED WITH WARM BLANKET x2.
[2024-02-11] MEDS ORDERED: LEVFLO500 PO (13:00)
[2024-02-11] MEDS ORDERED: LevoFLOXacin 500 MG Tab PO ONE (13:00)
[2024-02-11] MEDS ORDERED: TAMS.4ER PO (13:00)
--- NOTE | 2024-02-11 14:46 | NUR ---
A&Ox3-4. PLEASANT AND COOPERATIVE WITH CARE. CALLS APPROPRIATELY AND IS ABLE TO ADVOCATE NEEDS EFFECTIVELY. BEDREST MOST OF DAY; TO CHAIR WITH PT. CONDOM CATH FOR URINATION. NO BM TODAY. MEDS WHOLE WITH FLUIDS. C/O NAUSEA AND GENERALIZED MALAISE AND FEELING ILL. MEDICATED x2 MORPHINE AND ZOFRAM. PLANNED DC WITH ORDERS TO F/U WITH PCP NEXT WEEK. COUSIN IS HERE AND WOULD LIKE SECOND OPINION AND PLANS TO TAKE TO [facility]. PATIENT ESCORTED FROM FLOOR BY THIS RN WITH ALL BELONGINGS AND DISCHARGE PACKET @ [id number]. PRIVATE VEHICLE TRANSPORTATION PROVIDED BY FAMILY MEMBER.
== END 2024-02-11 14:15 | disposition home or self-care (01) | DRG 694 ==
LOC: ER 20:25 → MEDS 02-09 00:50
PROVIDERS: Emergency Medicine; Internal Medicine; ADMIT Student in an Organized Health Care Education/Training Program
DX: N13.2 Hydronephrosis with renal and ureteral calculous obstruction (principal); K92.1 Melena; K52.9 Noninfective gastroenteritis and colitis, unspecified; I10 Essential (primary) hypertension; F41.8 Other specified anxiety disorders; E78.5 Hyperlipidemia, unspecified; G25.81 Restless legs syndrome; E86.0 Dehydration; G62.9 Polyneuropathy, unspecified; K21.9 Gastro-esophageal reflux disease without esophagitis; M10.9 Gout, unspecified
CPT/HCPCS: 0241U; 36415; 51798; 74177; 80053; 83690; 83735; 85025; 87507; 93005; 93010; 97110; 97161; 99285-25; A9270; J0456; J2270; J2405; J7050; J7120; Q9967

== ENCOUNTER 2024-04-20 16:59 | Inpatient (IN) | payer MEDICARE, BC ==
[~2024-04-20] VITALS: Ht 172.7 cm; Wt 82.0 kg
[~2024-04-20 16:59] MED LIST changes: +LEVFLO500 PO; +OMEP20ER PO; +ROPINIROLE HCL1 MG PO
[2024-04-20] MEDS ORDERED: Acetaminophen 500 MG Tab PO ONE (17:15)
[2024-04-20] MEDS ORDERED: CefTRIAXone Sodium 1,000 MG in NS 100 ML IV ONE (17:15)
[2024-04-20 17:26] LABS: BASOPHILS ABSOLUTE AUTO 0.06 K/mm3 (0.00-0.23); BASOPHILS PERCENT AUTO 0 % (0-2); EOSINOPHILS ABSOLUTE AUTO 0.01 K/mm3 (0.00-0.68); EOSINOPHILS PERCENT AUTO 0 % (0-6); Hematocrit 45.8 % (37.0-53.0); Hemoglobin 15.6 g/dL (13.5-17.5); IMMATURE GRAN ABSOLUTE AUTO 0.15 K/mm3 (0.00-0.10); IMMATURE GRAN PERCENT AUTO 1 % (0-1); LYMPHOCYTES ABSOLUTE AUTO 1.94 K/mm3 (0.84-5.20); LYMPHOCYTES PERCENT AUTO 10 % (21-46); MONOCYTES ABSOLUTE AUTO 2.33 K/mm3 (0.16-1.47); MONOCYTES PERCENT AUTO 11 % (4-13); Mean Corpuscular HGB 29.7 pg (26.0-34.0); Mean Corpuscular HGB Conc 34.1 g/dL (31.5-36.5); Mean Corpuscular Volume 87 fL (80-100); Mean Platelet Volume 11.1 fL (9.1-12.4); NEUTROPHILS ABSOLUTE AUTO 15.98 K/mm3 (1.96-9.15); NEUTROPHILS PERCENT AUTO 78 % (41-73); Platelet Count 173 K/mm3 (150-400); RDW Coefficient Variation 14.9 % (11.7-14.2); Red Blood Cell Count 5.26 M/mm3 (4.30-5.90); White Blood Cell Count 20.47 K/mm3 (4.00-11.30)
[2024-04-20] MEDS ORDERED: CefTRIAXone 1000 MG Vial ONE (17:42)
[2024-04-20] MEDS ORDERED: NS 100 ML IV ONE (17:42)
[2024-04-20] MEDS ORDERED: NS 1,000 ML IV SCH ×2 (17:45→22:00)
[2024-04-20 17:47] LABS: Albumin, Blood 3.2 g/dL (3.4-5.0); Albumin/Globulin Ratio 0.7 (0.8-1.8); Bilirubin, Total 1.9 mg/dL (0.1-1.0); Bun/Creatinine Ratio 21.3 (12.0-20.0); Calcium, Blood 9.2 mg/dL (8.5-10.1); Creatinine, Blood 1.27 mg/dL (0.60-1.20); Globulin, Blood 4.3 g/dL (2.2-4.0); Magnesium, Blood 2.1 mg/dL (1.6-2.4); Phosphorus, Blood 1.9 mg/dL (2.5-4.9); Potassium, Blood 3.9 mmol/L (3.5-5.5); Total Protein, Blood 7.5 g/dL (6.4-8.2)
[2024-04-20 18:30] LABS: Source, Urine Clean Catch
[2024-04-20 18:31] LABS: Appearance, Urine Hazy (Clear); Bilirubin, Urine Neg (Neg); Blood, Urine 5+ (Neg); Color, Urine Amber (P-Yellow); Glucose Qualitative, Urine Neg (Neg); Ketones, Urine Neg (Neg); Leukocyte Esterase, Urine 3+ (Neg); Nitrite, Urine Neg (Neg); Protein, Urine 3+ (Neg); Urobilinogen, Urine NORM (Normal)
[2024-04-20 18:47] LABS: Influenza A, PCR NEGATIVE (NEGATIVE); Influenza B, PCR NEGATIVE (NEGATIVE); Resp Syncytial Virus, PCR NEGATIVE (NEGATIVE); SARS-Cov-2 (COVID-19) PCR, MMC NEGATIVE (NEGATIVE)
[2024-04-20 19:01] LABS: White Blood Cells, Urine 25-50 /hpf (0-5)
[2024-04-20 19:02] LABS: Amorphous Light (0-Heavy); Bacteria Many /hpf; Mucus Light (0-Heavy); Red Blood Cells, Urine TNTC /hpf (0-2); Squamous Epithelial Cells Rare /hpf (Few); Transitional Epithelial Cells Rare /hpf (0-Rare)
[2024-04-20] MEDS ORDERED: Morphine Sulfate 4 MG/1 ML Injection IV ONE (20:20)
[2024-04-20] MEDS ORDERED: Ondansetron HCl 2 MG / ML 2ML Vial IV PRN (22:00)
[2024-04-20] MEDS ORDERED: Acetaminophen 325 MG TABLET PO PRN (22:00)
[2024-04-20] MEDS ORDERED: Gabapentin 300 MG Cap PO SCH (23:00)
[2024-04-20] MEDS ORDERED: Allopurinol 100 MG Tab PO SCH (23:00)
[2024-04-20] MEDS ORDERED: rOPINIRole HCl 1 MG Tab PO SCH (23:00)
[2024-04-20] MEDS ORDERED: OXYC5 PO (23:02)
[2024-04-20] MEDS ORDERED: Sertraline HCl 100 MG Tab PO SCH (23:30)
[2024-04-21] MEDS ORDERED: Piperacillin/Tazobactam Sod 3.375 GM in NS 100 ML IV SCH
[2024-04-21] MEDS ORDERED: Sodium Phosphate Mono/Dibasic 250 MG Tab PO SCH
[2024-04-21 00:15] VITALS: BP 153/85
[2024-04-21] MEDS ORDERED: NS 100 ML IV ONE ×5 (00:27→23:16)
[2024-04-21] MEDS ORDERED: Piperacillin/Tazobactam Sod 3.375 GM ONE ×5 (00:27→23:16)
[2024-04-21 05:02] LABS: Hematocrit 40.1 % (37.0-53.0); Hemoglobin 13.7 g/dL (13.5-17.5); Mean Corpuscular HGB Conc 34.2 g/dL (31.5-36.5); Mean Corpuscular Volume 88 fL (80-100); Mean Platelet Volume 11.2 fL (9.1-12.4); Platelet Count 145 K/mm3 (150-400); RDW Coefficient Variation 14.9 % (11.7-14.2); RDW Standard Deviation 47.4 fL (35.1-46.3); Red Blood Cell Count 4.57 M/mm3 (4.30-5.90); White Blood Cell Count 17.93 K/mm3 (4.00-11.30)
--- NOTE | 2024-04-21 05:06 | NUR ---
NEW ADMIT/LEAD INGOT MOLDER SUMMARY NEW ADMIT FOR PYELONEPHRITIS. PT ARRIVED TO ROOM AT 2345; USED SLIDER SHEET TO XFER. PT PAINFUL/SENSITIVE TO TOUCH. C/O OF FEELING COLD. PT A/OX1-2; PER REPORT PT IS A/OX4. PT MINIMALLY ABLE TO FOLLOW DIRECTIONS. PT SLIGHTLY AGITATED W/CARE; PULLING AWAY, RAISING VOICE, SWEARING. PT UNABLE TO STATE WHERE HE IS AT OR WHY. PT HAD XIE CATH PLACED IN THE ED; PER REPORT FROM ER NURSE CATH PLACED FOR AMS AND SEPSIS. PHONE CALL TO DR GUSMAN TO DISCUSS; PT HAD HX OF RETENTION PRIOR TO URETER STENTS PLACED. PT HAS SMALL ANJANA BLOOD FROM MEATUS W/SWELLING. PER , LEAVE XIE R/T HX OF RETENTION AT THIS TIME. PT FEBRILE UPON ARRIVAL. GAVE TYLENOL W/GOOD EFFECT. PT SLEEPING INTERMITTANTLY T/O THE NIGHT. PT ATTEMPT OOB A FEW TIMES. PT CONFUSED WHAT HE IS DOING; REDIRECTABLE. BED ALARM IN PLACE. CALL LIGHT ACCESSIBLE. PT NOT USING CALL LIGHT OR MAKING NEEDS KNOWN. FREQUENT INTERVAL ROUNGING COMPLETE TO ASSESS NEEDS.
[2024-04-21 05:07] VITALS: BP 99/65
[2024-04-21 05:36] LABS: BAND PERCENT MAN 14 % (0-8); BASOPHILS PERCENT MAN 0 % (0-2); EOSINOPHILS PERCENT MAN 0 % (0-6); LYMPHOCYTES ABSOLUTE MAN 0.35 K/mm3 (0.84-5.20); LYMPHOCYTES PERCENT MAN 2 % (21-46); MONOCYTES ABSOLUTE MAN 0.89 K/mm3 (0.16-1.47); MONOCYTES PERCENT MAN 5 % (4-13); NEUTROPHILS ABSOLUTE MAN 16.67 K/mm3 (1.96-9.15); SEG NEUTROPHILS PERCENT MAN 79 % (41-73); TOTAL CELLS COUNTED 100
[2024-04-21 05:49] LABS: Albumin, Blood 2.9 g/dL (3.4-5.0); Albumin/Globulin Ratio 0.8 (0.8-1.8); Bilirubin, Total 1.5 mg/dL (0.1-1.0); Bun/Creatinine Ratio 22.1 (12.0-20.0); Calcium, Blood 8.5 mg/dL (8.5-10.1); Creatinine, Blood 1.22 mg/dL (0.60-1.20); Globulin, Blood 3.8 g/dL (2.2-4.0); Phosphorus, Blood 2.8 mg/dL (2.5-4.9); Potassium, Blood 3.2 mmol/L (3.5-5.5); Total Protein, Blood 6.7 g/dL (6.4-8.2)
[2024-04-21] MEDS ORDERED: Omeprazole 20 MG CapCR PO SCH (06:00)
[2024-04-21 08:01] VITALS: BP 104/63
[2024-04-21] MEDS ORDERED: Enoxaparin 40 MG/0.4 ML SYR SC SCH (09:00)
[2024-04-21] MEDS ORDERED: Tamsulosin HCl 0.4 MG Cap PO SCH (09:00)
[2024-04-21] MEDS ORDERED: Lactobacil 2-S.Thermo-Bifido 1 1 Cap PO SCH (09:00)
--- NOTE | 2024-04-21 11:41 | NUR ---
NOTE: NOTIFIED BY TELE OF THE PT'S POSITIVE BLOOD CULTURES, GRAM POSITIVE COCCI IN CHAINS. PROVIDER, DR. HERNANDEZ, NOTIFIED. HE WILL REVIEW THE RESULTS.
[2024-04-21 16:05] VITALS: BP 104/59
[2024-04-21] MEDS ORDERED: NS 250 ML IV PRN (16:20)
--- NOTE | 2024-04-21 17:14 | NUR ---
SHIFT SUMMARY PT AOX2, BECOMING MORE ORIENTED THE SHIFT GOES ON. SLEPT MOST OF THE SHIFT BUT EASY TO AROUSE. PT MEDICATED FOR PAIN AT THE START OF THE SHIFT WITH RELIEF. PT'S UPDATED. PT IS A 1 PERSON TURN IN THE BED. XIE IN PLACE AND DRAINING. HE HAS BEEN PLEASANT AND COOPERATIVE. REPOSITIONED THROUGHOUT THE SHIFT AND PT CAN REPOSITION HIMSELF IN BED. CALL LIGHT WITHIN REACH, BED LOCKED AND IN THE LOWEST POSITION. WILL REPORT TO ONCOMING NURSE.
[2024-04-21 20:28] VITALS: BP 108/73
[2024-04-21] MEDS ORDERED: Atorvastatin 10 MG Tab PO SCH (21:00)
[2024-04-21] MEDS ORDERED: OxyCODONE HCL 5 MG TAB PO PRN (22:40)
[2024-04-22 02:27] VITALS: BP 132/82
[2024-04-22] MEDS ORDERED: Piperacillin/Tazobactam Sod 3.375 GM ONE ×2 (04:38→12:35)
[2024-04-22] MEDS ORDERED: NS 100 ML IV ONE ×2 (04:38→12:35)
[2024-04-22 05:23] LABS: BASOPHILS ABSOLUTE AUTO 0.03 K/mm3 (0.00-0.23); BASOPHILS PERCENT AUTO 0 % (0-2); EOSINOPHILS ABSOLUTE AUTO 0.33 K/mm3 (0.00-0.68); EOSINOPHILS PERCENT AUTO 3 % (0-6); IMMATURE GRAN ABSOLUTE AUTO 0.06 K/mm3 (0.00-0.10); IMMATURE GRAN PERCENT AUTO 1 % (0-1); LYMPHOCYTES PERCENT AUTO 18 % (21-46); MONOCYTES ABSOLUTE AUTO 0.94 K/mm3 (0.16-1.47); MONOCYTES PERCENT AUTO 9 % (4-13); Mean Corpuscular HGB 29.5 pg (26.0-34.0); Mean Corpuscular HGB Conc 33.3 g/dL (31.5-36.5); Mean Corpuscular Volume 89 fL (80-100); Mean Platelet Volume 10.6 fL (9.1-12.4); NEUTROPHILS PERCENT AUTO 69 % (41-73); Platelet Count 128 K/mm3 (150-400); RDW Standard Deviation 49.2 fL (35.1-46.3); Red Blood Cell Count 4.07 M/mm3 (4.30-5.90); White Blood Cell Count 10.36 K/mm3 (4.00-11.30)
[2024-04-22 05:44] LABS: Albumin, Blood 2.4 g/dL (3.4-5.0); Albumin/Globulin Ratio 0.6 (0.8-1.8); Bilirubin, Total 0.5 mg/dL (0.1-1.0); Bun/Creatinine Ratio 20.3 (12.0-20.0); Calcium, Blood 8.1 mg/dL (8.5-10.1); Creatinine, Blood 1.23 mg/dL (0.60-1.20); Globulin, Blood 3.7 g/dL (2.2-4.0); Total Protein, Blood 6.1 g/dL (6.4-8.2)
--- NOTE | 2024-04-22 06:14 | NUR ---
SHIFT SUMMARY PT A&OX2-3 AND ANSWERS QUESTIONS APPROPRIATELY. PT FORGETFUL BUT ABLE TO MAKE NEEDS KNOWN. SCHEDULED AND PRN MEDICATIONS ADMINISTERED PER EMAR. VSS, NO COMPLAINTS OF CP/PRESSURE DURING SHIFT. PT SPENT MOST OF SHIFT WITH EYES CLOSED AND RESPIRATIONS EVEN AND UNLABORED. NO ACUTE EVENTS AT THIS TIME. PT REPOSITIONED Q2HRS. PT LEFT IN A POSITION OF SAFETY WITH PROPER FALL PRECAUTIONS IN PLACE AND CALL LIGHT IN REACH.
[2024-04-22 07:26] VITALS: BP 128/83
[2024-04-22] MEDS ORDERED: Potassium Chloride 20 MEQ TabCR PO SCH (08:00)
[2024-04-22 14:48] VITALS: BP 133/82
--- NOTE | 2024-04-22 18:20 | NUR ---
summary PT HAS BEEN ALERT AND ORIENTED T/O DAY. XIE CATH DRAINING YELLOW URINE. IV ABX ADMINISTERED PER ORDERS. PT NAUSEATED THIS AFTERNOON, MEDICATED PER ORDERS FOR PAIN, REPORTS NAUSE HAS RESOLVED. HAD ONE INCONTINENT BM THIS AFTERNOON THAT WAS SOFT AND UNFORMED. STOOD THIS EVENING FOR A BRIEF AMOUNT OF TIME WITH TONYA BETTS RN, BUT BECAME DIZZY AND RETURNED TO BED. NOW EATING DINNER. CALL LIGHT IN REACH.
[2024-04-22 19:17] VITALS: BP 124/78
[2024-04-23 02:52] VITALS: BP 138/86
--- NOTE | 2024-04-23 04:02 | NUR ---
PT RESTING QUIETLY IN BED WITH EYES CLOSED. NO C/O VOICED. PT RESISTANT TO OOB. PT STATES, "I GOT REALLY DIZZY THE LAST TIME I GOT UP." PT INCONTINENT OF BM X1. USING BEDPAN AT TIMES.
[2024-04-23 05:08] LABS: BASOPHILS ABSOLUTE AUTO 0.04 K/mm3 (0.00-0.23); BASOPHILS PERCENT AUTO 1 % (0-2); EOSINOPHILS ABSOLUTE AUTO 0.43 K/mm3 (0.00-0.68); EOSINOPHILS PERCENT AUTO 6 % (0-6); Hematocrit 35.6 % (37.0-53.0); Hemoglobin 11.8 g/dL (13.5-17.5); IMMATURE GRAN ABSOLUTE AUTO 0.05 K/mm3 (0.00-0.10); IMMATURE GRAN PERCENT AUTO 1 % (0-1); LYMPHOCYTES ABSOLUTE AUTO 2.12 K/mm3 (0.84-5.20); LYMPHOCYTES PERCENT AUTO 32 % (21-46); MONOCYTES ABSOLUTE AUTO 0.63 K/mm3 (0.16-1.47); MONOCYTES PERCENT AUTO 9 % (4-13); Mean Corpuscular HGB 29.6 pg (26.0-34.0); Mean Corpuscular HGB Conc 33.1 g/dL (31.5-36.5); Mean Corpuscular Volume 89 fL (80-100); Mean Platelet Volume 11.9 fL (9.1-12.4); NEUTROPHILS ABSOLUTE AUTO 3.41 K/mm3 (1.96-9.15); NEUTROPHILS PERCENT AUTO 51 % (41-73); Platelet Count 135 K/mm3 (150-400); RDW Coefficient Variation 14.9 % (11.7-14.2); Red Blood Cell Count 3.98 M/mm3 (4.30-5.90); White Blood Cell Count 6.68 K/mm3 (4.00-11.30)
[2024-04-23 05:40] LABS: Albumin, Blood 2.3 g/dL (3.4-5.0); Albumin/Globulin Ratio 0.6 (0.8-1.8); Bilirubin, Total 0.3 mg/dL (0.1-1.0); Bun/Creatinine Ratio 14.8 (12.0-20.0); Calcium, Blood 8.5 mg/dL (8.5-10.1); Creatinine, Blood 1.22 mg/dL (0.60-1.20); Globulin, Blood 3.8 g/dL (2.2-4.0); Potassium, Blood 3.4 mmol/L (3.5-5.5); Total Protein, Blood 6.1 g/dL (6.4-8.2)
[2024-04-23 07:28] VITALS: BP 135/86
[2024-04-23] MEDS ORDERED: SERT100 PO (11:56)
[2024-04-23 12:37] LABS: C DIFFICILE DNA NEGATIVE (Negative)
[2024-04-23 15:14] VITALS: BP 135/80
--- NOTE | 2024-04-23 16:27 | NUR ---
REPORT RECEIVED VERIFIED PT A/O VSS, ARRIVED ON SHIFT AND PT ON BEDPAN I DONT KNOW FOR HOW LONG BUT PT HAD WELT ON BACK WITH NO BREAKDOWN. I EXPLAINED TO PT TO NOT WAIT THAT LONG TO CALL SO PT NOW AWARE.
--- NOTE | 2024-04-23 17:10 | NUR ---
PHYSICAL THERAPIST ASSISTED PT TO CHAIR, PT DID VERY WELL SITTING UP FOR SEVERAL HOURS, ALSO ASSISTED PT WITH FWW TO BS, PT HAVING LOOSE GELATINOUS STOOL 3 SO FAR. MD LAZCANO TO SEE PT, INFORMED OF LOOSE STOOL AND SPECIMIN SENT FOR CDIFF. PT TURNING SELL, XIE DRAINING CLR YELLOW URING. CDIFF NEG.
[2024-04-23 20:03] VITALS: BP 154/92
[2024-04-24 05:27] VITALS: BP 132/88
[2024-04-24 06:02] LABS: BASOPHILS ABSOLUTE AUTO 0.04 K/mm3 (0.00-0.23); BASOPHILS PERCENT AUTO 1 % (0-2); EOSINOPHILS ABSOLUTE AUTO 0.43 K/mm3 (0.00-0.68); EOSINOPHILS PERCENT AUTO 7 % (0-6); Hematocrit 38.2 % (37.0-53.0); Hemoglobin 13.1 g/dL (13.5-17.5); IMMATURE GRAN ABSOLUTE AUTO 0.05 K/mm3 (0.00-0.10); IMMATURE GRAN PERCENT AUTO 1 % (0-1); LYMPHOCYTES ABSOLUTE AUTO 2.05 K/mm3 (0.84-5.20); LYMPHOCYTES PERCENT AUTO 35 % (21-46); MONOCYTES ABSOLUTE AUTO 0.66 K/mm3 (0.16-1.47); MONOCYTES PERCENT AUTO 11 % (4-13); Mean Corpuscular HGB 30.3 pg (26.0-34.0); Mean Corpuscular HGB Conc 34.3 g/dL (31.5-36.5); Mean Corpuscular Volume 88 fL (80-100); Mean Platelet Volume 11.6 fL (9.1-12.4); NEUTROPHILS ABSOLUTE AUTO 2.66 K/mm3 (1.96-9.15); NEUTROPHILS PERCENT AUTO 45 % (41-73); Platelet Count 160 K/mm3 (150-400); RDW Coefficient Variation 15.1 % (11.7-14.2); Red Blood Cell Count 4.32 M/mm3 (4.30-5.90); White Blood Cell Count 5.89 K/mm3 (4.00-11.30)
[2024-04-24 06:26] LABS: Albumin, Blood 2.5 g/dL (3.4-5.0); Albumin/Globulin Ratio 0.6 (0.8-1.8); Bilirubin, Total 0.4 mg/dL (0.1-1.0); Bun/Creatinine Ratio 13.6 (12.0-20.0); Creatinine, Blood 1.1 mg/dL (0.60-1.20); Potassium, Blood 4.1 mmol/L (3.5-5.5); Total Protein, Blood 6.5 g/dL (6.4-8.2)
[2024-04-24 07:42] VITALS: BP 118/72
[2024-04-24] MEDS ORDERED: AMOX875 PO (09:32)
--- NOTE | 2024-04-24 13:10 | NUR ---
DISCHARGE NOTE MR CHOW WAS DISCHARGED HOME WITH HIS AT 1255HRS. W/C ESCORT. PT AND VERBALISED UNDERSTANDING OF WRITTEN AND VERBAL DISCHARGE INSTRUCTIONS. MARTINEZ SAID XIE DINORAH WAS PLACED IN THE ER ON ADMISSION TO [facility], AND PT SAID HE WANTED IT REMOVED. XIE REMOVED WITHOUT PROBLEMS. QUE, , SAID THEY HAVE FOLLOW UP APPOINTMENT WITH UROLOGY. PIV REMOVED INTACT FROM R ARM, NO OTHER PIV IN PLACE. PT WAS UP TO THE SOWER THIS AM AND DENIED HAVING DIZZYNESS. HE IS ORIENTATED AND APPROPRIATE, SAID HE SOMETIMES GETS SOME WORDS MIXED UP. DENIES PAIN OR OR ANY NEW CONCERNS PRIOR TO DISCHARGE.
== END 2024-04-24 12:53 | disposition home health service (06) | DRG 698 ==
LOC: ER 16:59 → MEDS 21:56 → ENPENDDIS 04-24 09:59 → MEDS 04-24 12:53
PROVIDERS: Emergency Medicine; Family Medicine; Internal Medicine Endocrinology, Diabetes & Metabolism; Physician Assistant; ADMIT Student in an Organized Health Care Education/Training Program
DX: T83.592A Infection and inflammatory reaction due to indwelling ureteral stent, initial encounter (principal); A41.81 Sepsis due to Enterococcus; R65.20 Severe sepsis without septic shock; G92.8 Other toxic encephalopathy; J84.9 Interstitial pulmonary disease, unspecified; E87.20 Acidosis, unspecified; N12 Tubulo-interstitial nephritis, not specified as acute or chronic; N18.30 Chronic kidney disease, stage 3 unspecified; F32.A Depression, unspecified; E80.6 Other disorders of bilirubin metabolism; M10.9 Gout, unspecified; F41.9 Anxiety disorder, unspecified; E83.39 Other disorders of phosphorus metabolism; N40.1 Benign prostatic hyperplasia with lower urinary tract symptoms; I12.9 Hypertensive chronic kidney disease with stage 1 through stage 4 chronic kidney disease, or unspecified chronic kidney disease; R33.8 Other retention of urine; N32.81 Overactive bladder; F41.8 Other specified anxiety disorders; E87.6 Hypokalemia; E78.5 Hyperlipidemia, unspecified; G25.81 Restless legs syndrome; Z87.442 Personal history of urinary calculi; Z98.890 Other specified postprocedural states; Z90.49 Acquired absence of other specified parts of digestive tract; Z79.899 Other long term (current) drug therapy; Z79.2 Long term (current) use of antibiotics; Y83.8 Other surgical procedures as the cause of abnormal reaction of the patient, or of later complication, without mention of misadventure at the time of the procedure
CPT/HCPCS: 0241U; 36415; 51702; 70450; 71045; 74177; 80053; 81001; 82140; 83605; 83735; 84100; 84145; 84484; 85025; 87040; 87077; 87086; 87186; 87493; 93005; 93010; 96365-59; 96375-59; 97110; 97161; 97165; 97530; 97535; 99285-25; A9270; J0696; J1650; J2270; J2405; J2543; J7030; J7050; Q9967

== ENCOUNTER 2024-05-13 16:15 | Emergency (ER) | payer MEDICARE, BC ==
[~2024-05-13] VITALS: Ht 170.2 cm; Wt 81.7 kg
[~2024-05-13 16:15] MED LIST changes: +AMOX875 PO; +ONDA4ODT MM; +OXYC5 PO
[2024-05-13] MEDS ORDERED: NS 1,000 ML IV ONE ×2 (17:20→23:54)
[2024-05-13 18:09] LABS: Hematocrit 37.8 % (37.0-53.0); Hemoglobin 12.4 g/dL (13.5-17.5); Mean Corpuscular HGB 28.5 pg (26.0-34.0); Mean Corpuscular HGB Conc 32.8 g/dL (31.5-36.5); Mean Corpuscular Volume 87 fL (80-100); Mean Platelet Volume 10.5 fL (9.1-12.4); Platelet Count 194 K/mm3 (150-400); RDW Coefficient Variation 14.2 % (11.7-14.2); RDW Standard Deviation 45.5 fL (35.1-46.3); Red Blood Cell Count 4.35 M/mm3 (4.30-5.90); White Blood Cell Count 6.51 K/mm3 (4.00-11.30)
[2024-05-13 18:18] LABS: Albumin, Blood 2.8 g/dL (3.4-5.0); Albumin/Globulin Ratio 0.7 (0.8-1.8); Bilirubin, Total 0.4 mg/dL (0.1-1.0); Bun/Creatinine Ratio 22.2 (12.0-20.0); Calcium, Blood 8.6 mg/dL (8.5-10.1); Creatinine, Blood 1.17 mg/dL (0.60-1.20); Globulin, Blood 3.8 g/dL (2.2-4.0); Potassium, Blood 3.9 mmol/L (3.5-5.5); Total Protein, Blood 6.6 g/dL (6.4-8.2)
[2024-05-13 18:48] LABS: BASOPHILS PERCENT MAN 0 % (0-2); EOSINOPHILS ABSOLUTE MAN 0.06 K/mm3 (0.00-0.68); EOSINOPHILS PERCENT MAN 1 % (0-6); LYMPHOCYTES % ATYPICAL MANUAL 3 % (0-0); LYMPHOCYTES ABSOLUTE MAN 3.84 K/mm3 (0.84-5.20); LYMPHOCYTES PERCENT MAN 56 % (21-46); MONOCYTES ABSOLUTE MAN 0.52 K/mm3 (0.16-1.47); MONOCYTES PERCENT MAN 8 % (4-13); NEUTROPHILS ABSOLUTE MAN 2.08 K/mm3 (1.96-9.15); SEG NEUTROPHILS PERCENT MAN 32 % (41-73); TOTAL CELLS COUNTED 100
[2024-05-13 22:00] VITALS: BP 168/103
[2024-05-13 23:06] LABS: Source, Urine Clean Catch
[2024-05-13 23:09] LABS: Bilirubin, Urine Neg (Neg); Blood, Urine Neg (Neg); Glucose Qualitative, Urine Neg (Neg); Ketones, Urine Neg (Neg); Leukocyte Esterase, Urine Neg (Neg); Nitrite, Urine Neg (Neg); Protein, Urine 3+ (Neg); Specific Gravity, Urine 1.015 (1.003-1.022); Urobilinogen, Urine NORM (Normal)
[2024-05-13 23:16] LABS: Appearance, Urine Clear (Clear); Color, Urine Yellow (P-Yellow); Red Blood Cells, Urine Not Seen /hpf (0-2)
[2024-05-13 23:17] LABS: Amorphous Light (0-Heavy); Bacteria Few /hpf; Squamous Epithelial Cells Not Seen /hpf (Few)
[2024-05-13] MEDS ORDERED: LevoFLOXacin 750 MG Tab PO ONE (23:50)
[2024-05-13] MEDS ORDERED: LEVAQUIN750 MG PO (23:52)
[2024-05-13] MEDS ORDERED: RX Prepack 2 Tabs Ondansetron ODT 4MG UD ONE (23:55)
[2024-05-14] MEDS ORDERED: Ondansetron HCl 2 MG / ML 2ML Vial ONE (01:54)
[2024-05-14] MEDS ORDERED: Ondansetron HCl 2 MG / ML 2ML Vial IV ONE (23:55)
== END 2024-05-14 02:24 | disposition home or self-care (01) ==
LOC: ER 16:15
PROVIDERS: Emergency Medicine
DX: N39.0 Urinary tract infection, site not specified (principal); R11.2 Nausea with vomiting, unspecified; E86.0 Dehydration; I10 Essential (primary) hypertension; E78.5 Hyperlipidemia, unspecified; G25.81 Restless legs syndrome; M10.9 Gout, unspecified; Z98.890 Other specified postprocedural states; Z79.899 Other long term (current) drug therapy
CPT/HCPCS: 51798; 74177; 80053; 81001; 85025; 87086; 93005; 93010; 96361; 96374-59; 99285-25; A9270; J2405; J7030; Q9967

== ENCOUNTER → 2024-06-22 | Outpatient (CLI) | payer MEDICARE, BC ==
[~2024-06-22] MED LIST changes: +LEVAQUIN750 MG PO
[2024-06-22 13:23] LABS: BASOPHILS ABSOLUTE AUTO 0.06 K/mm3 (0.00-0.23); BASOPHILS PERCENT AUTO 1 % (0-2); EOSINOPHILS PERCENT AUTO 4 % (0-6); Hematocrit 45.1 % (37.0-53.0); Hemoglobin 15.5 g/dL (13.5-17.5); IMMATURE GRAN ABSOLUTE AUTO 0.02 K/mm3 (0.00-0.10); IMMATURE GRAN PERCENT AUTO 0 % (0-1); LYMPHOCYTES ABSOLUTE AUTO 3.69 K/mm3 (0.84-5.20); LYMPHOCYTES PERCENT AUTO 46 % (21-46); MONOCYTES ABSOLUTE AUTO 0.79 K/mm3 (0.16-1.47); MONOCYTES PERCENT AUTO 10 % (4-13); Mean Corpuscular HGB 29.2 pg (26.0-34.0); Mean Corpuscular HGB Conc 34.4 g/dL (31.5-36.5); Mean Corpuscular Volume 85 fL (80-100); Mean Platelet Volume 10.5 fL (9.1-12.4); NEUTROPHILS ABSOLUTE AUTO 3.17 K/mm3 (1.96-9.15); NEUTROPHILS PERCENT AUTO 40 % (41-73); Platelet Count 207 K/mm3 (150-400); RDW Coefficient Variation 15.6 % (11.7-14.2); RDW Standard Deviation 47.2 fL (35.1-46.3); Red Blood Cell Count 5.31 M/mm3 (4.30-5.90); White Blood Cell Count 8.03 K/mm3 (4.00-11.30)
[2024-06-22 13:35] LABS: Albumin/Globulin Ratio 0.9 (0.8-1.8); Bilirubin, Total 0.7 mg/dL (0.1-1.0); Bun/Creatinine Ratio 16.2 (12.0-20.0); Calcium, Blood 9.9 mg/dL (8.5-10.1); Creatinine, Blood 1.36 mg/dL (0.60-1.20); Globulin, Blood 4.4 g/dL (2.2-4.0); Potassium, Blood 4.1 mmol/L (3.5-5.5); Total Protein, Blood 8.4 g/dL (6.4-8.2)
== END ==
LOC: LAB SHORT 13:19 → LAB 13:19
PROVIDERS: Physician Assistant
DX: R10.9 Unspecified abdominal pain (principal)
CPT/HCPCS: 80053; 83690; 85025

== ENCOUNTER → 2025-04-23 | Outpatient (CLI) | payer MEDICARE, BC ==
[2025-04-25 09:25] LABS: Stool Occult Bld Immuno 1 Negative (NEGATIVE)
== END | disposition home or self-care (01) ==
LOC: LAB SHORT 11:00 → LAB 11:00
PROVIDERS: Nurse Practitioner Family
DX: R19.5 Other fecal abnormalities (principal)
CPT/HCPCS: 82274

== ENCOUNTER 2025-06-15 08:06 | Emergency (ER) | payer MEDICARE, BC ==
[~2025-06-15] VITALS: Ht 170.2 cm; Wt 69.0 kg
[2025-06-15] MEDS ORDERED: OxyCODONE 5 mg/Acetamin 325 mg TABLET PO ONE (10:45)
[2025-06-15] MEDS ORDERED: Magnesium Citrate 300 ML BTL PO ONE (11:20)
[2025-06-15 11:22] LABS: BASOPHILS ABSOLUTE AUTO 0.08 K/mm3 (0.00-0.23); BASOPHILS PERCENT AUTO 1 % (0-2); EOSINOPHILS ABSOLUTE AUTO 0.30 K/mm3 (0.00-0.68); EOSINOPHILS PERCENT AUTO 3 % (0-6); Hematocrit 37.4 % (37.0-53.0); Hemoglobin 12.2 g/dL (13.5-17.5); IMMATURE GRAN ABSOLUTE AUTO 0.08 K/mm3 (0.00-0.10); IMMATURE GRAN PERCENT AUTO 1 % (0-1); LYMPHOCYTES ABSOLUTE AUTO 3.07 K/mm3 (0.84-5.20); LYMPHOCYTES PERCENT AUTO 31 % (21-46); MONOCYTES ABSOLUTE AUTO 0.91 K/mm3 (0.16-1.47); MONOCYTES PERCENT AUTO 9 % (4-13); Mean Corpuscular HGB Conc 32.6 g/dL (31.5-36.5); Mean Corpuscular Volume 88 fL (80-100); NEUTROPHILS ABSOLUTE AUTO 5.33 K/mm3 (1.96-9.15); NEUTROPHILS PERCENT AUTO 55 % (41-73); NRBC ABSOLUTE 0.00 K/mm3 (0.00-0.02); NRBC Auto 0.0 /100 WBC (0.0-0.2); Platelet Count 267 K/mm3 (150-400); RDW Coefficient Variation 15.2 % (11.7-14.2); RDW Standard Deviation 48.7 fL (35.1-46.3)
[2025-06-15 11:40] LABS: Alanine Aminotransfer (ALT/SGP 17.0 U/L (12-78); Albumin, Blood 3.8 g/dL (3.4-5.0); Albumin/Globulin Ratio 0.9 (0.8-1.8); Anion Gap 11.0 mmol/L (3-11); Aspartate Aminotrans (AST/SGOT 25.0 U/L (12-37); Bilirubin, Total 0.6 mg/dL (0.1-1.0); Blood Urea Nitrogen 24.0 mg/dL (8-24); CO2, Blood 24.0 mmol/L (21-32); Calcium, Blood 9.6 mg/dL (8.5-10.1); Chloride, Blood 102.0 mmol/L (98-108); Creatinine, Blood 1.05 mg/dL (0.60-1.20); Globulin, Blood 4.2 g/dL (2.2-4.0); Glucose, Blood 114.0 mg/dL (70-99); Potassium, Blood 3.9 mmol/L (3.5-5.5); Sodium, Blood 133.0 mmol/L (136-145); Total Protein, Blood 8.0 g/dL (6.4-8.2)
[2025-06-15 12:48] LABS: Source, Urine Clean Catch
[2025-06-15] MEDS ORDERED: MAGCIT300 PO (12:57)
[2025-06-15 13:03] LABS: Bilirubin, Urine Neg (Neg); Color, Urine Yellow (P-Yellow); Glucose Qualitative, Urine Neg (Neg); Ketones, Urine Neg (Neg); Leukocyte Esterase, Urine Neg (Neg); Protein, Urine 2+ (Neg); Specific Gravity, Urine 1.025 (1.003-1.022); Urobilinogen, Urine NORM (Normal)
[2025-06-15 13:15] VITALS: BP 139/95
[2025-06-15 13:22] LABS: Red Blood Cells, Urine 0-2 /hpf (0-2)
== END 2025-06-15 14:42 | disposition home or self-care (01) ==
LOC: ER 08:06
PROVIDERS: Physician Assistant
DX: K59.00 Constipation, unspecified (principal); E86.0 Dehydration; E78.5 Hyperlipidemia, unspecified; Z79.899 Other long term (current) drug therapy
CPT/HCPCS: 80053; 81001; 85025; 87077; 87086; 87186; 99283; A9270